=== PATIENT | female | born 1975 | race Caucasian/White ===

== ENCOUNTER → 2020-08-20 13:16 | Outpatient (REF) | payer OTHER, SELFPAY ==
--- NOTE | 2020-08-20 13:00 | ECG_ITS ---
Hook-up date: 2020-08-20 13:26:00 Duration: 25:43:00 Test Indications: SYNCOPE Medications: [id number] QRS complexes * Ventricular ectopics which represent % of total QRS comp. 3 Supraventricular ectopics which represent <1 % of total QRS comp. * Paced QRS complexs which represent % of total QRS comp. VENTRICULAR ECTOPY * Isolated * Bigeminal Cycles * Couplets * Runs * Beats in Runs * Beats LONGEST at * BPM at :: -- * Beats FASTEST at * BPM at :: -- SUPRAVENTRICULAR ECTOPY 3 Isolated 0 Couplets 0 Runs 0 Beats in Runs * Beats LONGEST at * BPM at :: -- * Beats FASTEST at * BPM at :: -- HEART RATES 53 MIN at 04:43:07 2020-08-21 81 AVG 138 MAX at 10:36:35 2020-08-21 LONGEST RR 1.4080 secs at 03:16:10 2020-08-21 S-T LEVELS Channel 1 - 128 mm at 13:26:00 2020-08-20 - 128 mm at 13:26:00 2020-08-20 Channel 2 - 128 mm at 13:26:00 2020-08-20 - 128 mm at 13:26:00 2020-08-20 Channel 3 - 128 mm at 03:24:51 -- - 128 mm at 03:24:51 Basic rhythm Normal sinus rhythm No long pause or profound bradycardia No dangerous dysrhythm periods No diary submitted Referred By: Sherita Forrester Overread By: GUZMAN WORTHINGTON MD
== END ==
LOC: HO.CARD 13:16
PROVIDERS: PCP Pediatrics; Visit Provider Psychiatry & Neurology Neurology
DX: R55 Syncope and collapse (principal)
CPT/HCPCS: 93225; 93226